=== PATIENT | male | born 1945 | race African-American/Black ===

== ENCOUNTER 2024-05-22 08:55 | Inpatient (IN) | payer MEDICARE ==
[2024-05-20 10:26] LABS: BASOPHILS % 0.3 % (0.0-1.0); EOSINOPHILS # (AUTO) 0.1 (0.0-0.4); EOSINOPHILS % 1.8 % (0.0-6.0); HEMATOCRIT 54.5 % (38.2-49.6); HEMOGLOBIN 17.3 g/dL (14.0-18.0); LYMPHOCYTES # (AUTO) 1.3 (1.0-3.2); LYMPHOCYTES % 20.5 % (18.0-39.1); MEAN CORPUSCULAR HGB CONC 31.7 g/dL (31-35); MEAN CORPUSCULAR VOLUME 100.7 fL (81-99); MONOCYTES # (AUTO) 0.6 (0.2-0.8); MONOCYTES % 9.7 % (4.4-11.3); NEUTROPHILS # (AUTO) 4.2 (2.1-6.9); NEUTROPHILS % 67.5 % (38.7-80.0); PLATELET COUNT 135 x10e3/uL (140-360); RED BLOOD COUNT 5.41 x10e6/uL (4.3-5.7); RED CELL DISTRIBUTION WIDTH 12.8 % (11.7-14.4); WHITE BLOOD COUNT 6.19 x10e3/uL (4.8-10.8)
[2024-05-20 10:50] LABS: CALCIUM 10.5 mg/dL (8.4-10.2); CREATININE, SERUM 0.77 mg/dL (0.72-1.25)
[~2024-05-22] VITALS: Ht 157.5 cm; Wt 61.9 kg
[2024-05-22] VITALS (7 sets, daily range): BP systolic 148–156; BP diastolic 81–87; PULSE 71–87; RESP 19–20; TEMP 97.6–97.7; O2SAT 94–99
[~2024-05-22 08:55] MED LIST: AMLODIPINE BESY10 MG PO; ASPIRIN81 MG PO; FINASTERIDE5 MG PO; FLOMAX0.4 MG PO; GARLIC1000 MG; METFORMIN HCL500 MG PO
[2024-05-22] MEDS: SODIUM CHLORIDE 0.9% 1000ML 1,000 ML ONE (10:25)
[2024-05-22] MEDS: CEFTRIAXONE 1 GM VIAL ONE (10:25)
[2024-05-22] MEDS: GENTAMICIN 80MG/NS 100 ML 200 ML IV ONE (10:25)
[2024-05-22] MEDS ORDERED: ACETAMINOPHEN 1000 MG/100 ML 100 ML IV ONE (11:22)
[2024-05-22] MEDS ORDERED: PROPOFOL IV EMULSION 10 MG/ML 20 ML VIAL ONE (11:22)
[2024-05-22] MEDS ORDERED: FENTANYL CITRATE/PF 100MCG/2 ML INJ ONE (11:22)
[2024-05-22] MEDS ORDERED: LIDOCAINE HCL 2% LOCAL INJ 5 ML SDV VIAL INJ ONE (11:22)
[2024-05-22] MEDS ORDERED: SEVOFLURANE INHAL SOLN 250 ML PEN BTL ONE (11:22)
[2024-05-22] MEDS ORDERED: ONDANSETRON HCL INJ 2MG/ML 2ML 2 MG/ML VIAL ONE (12:20)
[2024-05-22] MEDS ORDERED: DEXAMETHASONE SOD PHOS INJ 4 MG/ML SDV ONE (12:20)
[2024-05-22] MEDS: FENTANYL CITRATE/PF 100MCG/2 ML INJ ONE (13:44)
[2024-05-22] MEDS ORDERED: ONDANSETRON HCL INJ 2MG/ML 2ML 2 MG/ML VIAL IV PRN (13:45)
[2024-05-22 14:33] LABS: BASOPHILS % 0.1 % (0.0-1.0); EOSINOPHILS # (AUTO) 0.1 (0.0-0.4); HEMATOCRIT 49.2 % (38.2-49.6); HEMOGLOBIN 15.7 g/dL (14.0-18.0); LYMPHOCYTES % 9.5 % (18.0-39.1); MEAN CORPUSCULAR HEMOGLOBIN 32.3 pg (28-32); MEAN CORPUSCULAR HGB CONC 31.9 g/dL (31-35); MEAN CORPUSCULAR VOLUME 101.2 fL (81-99); MONOCYTES # (AUTO) 0.7 (0.2-0.8); MONOCYTES % 6.6 % (4.4-11.3); NEUTROPHILS # (AUTO) 8.2 (2.1-6.9); NEUTROPHILS % 82.6 % (38.7-80.0); RED BLOOD COUNT 4.86 x10e6/uL (4.3-5.7); RED CELL DISTRIBUTION WIDTH 12.6 % (11.7-14.4); WHITE BLOOD COUNT 9.98 x10e3/uL (4.8-10.8)
[2024-05-22 14:38] LABS: PLATELET COUNT 142 x10e3/uL (140-360)
[2024-05-22 14:52] LABS: ANION GAP 14.2 mmol/L (8-16); CALCIUM 8.7 mg/dL (8.4-10.2); CREATININE, SERUM 0.83 mg/dL (0.72-1.25); POTASSIUM 4.2 mmol/L (3.5-5.1)
[2024-05-22] MEDS: ACETAMINOPHEN 1000 MG/100 ML IV PRN (15:33)
[2024-05-22] MEDS: SENNA-S TABLET PO SCH (15:33)
[2024-05-22] MEDS: PHENAZOPYRIDINE HCL 100 MG TAB PO PRN (15:33)
[2024-05-22] MEDS: SODIUM CHLORIDE 0.9% 1000ML 1,000 ML IV SCH (15:33)
[2024-05-22] MEDS: DIPHENHYDRAMINE HCL 25 MG CAP PO PRN (19:36)
[2024-05-22] MEDS: ACETAMINOPHEN/CODEINE 300MG - 30MG TAB PO PRN (19:41)
[2024-05-23] VITALS (10 sets, daily range): BP systolic 130–143; BP diastolic 68–95; PULSE 74–93; RESP 18–20; TEMP 97.6–99; O2SAT 93–100
[2024-05-23 05:17] LABS: BASOPHILS % 0.1 % (0.0-1.0); HEMATOCRIT 44.8 % (38.2-49.6); HEMOGLOBIN 15.2 g/dL (14.0-18.0); LYMPHOCYTES # (AUTO) 0.7 (1.0-3.2); LYMPHOCYTES % 5.7 % (18.0-39.1); MEAN CORPUSCULAR HEMOGLOBIN 31.7 pg (28-32); MEAN CORPUSCULAR HGB CONC 33.9 g/dL (31-35); MEAN CORPUSCULAR VOLUME 93.5 fL (81-99); MONOCYTES # (AUTO) 1.2 (0.2-0.8); NEUTROPHILS % 84.8 % (38.7-80.0); PLATELET COUNT 146 x10e3/uL (140-360); RED BLOOD COUNT 4.79 x10e6/uL (4.3-5.7); RED CELL DISTRIBUTION WIDTH 12.6 % (11.7-14.4); WHITE BLOOD COUNT 12.92 x10e3/uL (4.8-10.8)
[2024-05-23 05:46] LABS: CALCIUM 8.6 mg/dL (8.4-10.2); CREATININE, SERUM 0.76 mg/dL (0.72-1.25)
[2024-05-23] MEDS ORDERED: HYDRALAZINE HCL 20 MG/ML VIAL IV PRN (09:00)
[2024-05-23] MEDS: CEFTRIAXONE 2 GM in SODIUM CHLORIDE 0.9% 100 ML IV SCH (09:26)
[2024-05-23] MEDS: AMLODIPINE BESYLATE 10 MG TAB PO SCH (09:29)
[2024-05-23] MEDS: FINASTERIDE 5 MG TAB PO SCH (09:29)
[2024-05-23] MEDS: TAMSULOSIN HCL 0.4 MG CAP PO SCH (17:02)
[2024-05-23] MEDS: ACETAMINOPHEN 325 MG TAB PO PRN (21:26)
[2024-05-24] VITALS (10 sets, daily range): BP systolic 125–143; BP diastolic 68–74; PULSE 71–92; RESP 16–19; TEMP 98–98.4; O2SAT 96–100
[2024-05-24 05:28] LABS: BASOPHILS % 0.3 % (0.0-1.0); EOSINOPHILS % 0.4 % (0.0-6.0); HEMATOCRIT 49.1 % (38.2-49.6); LYMPHOCYTES % 9.3 % (18.0-39.1); MEAN CORPUSCULAR HGB CONC 30.5 g/dL (31-35); MEAN CORPUSCULAR VOLUME 104.7 fL (81-99); MONOCYTES # (AUTO) 1.4 (0.2-0.8); MONOCYTES % 12.4 % (4.4-11.3); NEUTROPHILS # (AUTO) 8.7 (2.1-6.9); NEUTROPHILS % 77.3 % (38.7-80.0); PLATELET COUNT 113 x10e3/uL (140-360); RED BLOOD COUNT 4.69 x10e6/uL (4.3-5.7); RED CELL DISTRIBUTION WIDTH 13.2 % (11.7-14.4); WHITE BLOOD COUNT 11.24 x10e3/uL (4.8-10.8)
[2024-05-24 06:05] LABS: ANION GAP 14.8 mmol/L (8-16); CALCIUM 8.7 mg/dL (8.4-10.2); CREATININE, SERUM 0.7 mg/dL (0.72-1.25); POTASSIUM 3.8 mmol/L (3.5-5.1)
[2024-05-24 09:59] LABS: LYMPHOCYTES % (MANUAL) 10 % (19-48); MONOCYTES % (MANUAL) 4 % (3.4-9.0); NEUTROPHILS % (MANUAL) 83 % (40-74); REACTIVE LYMPHOCYTES 3
[2024-05-24 10:00] LABS: HYPOCHROMASIA SLIGHT; PLATELET ESTIMATE SLIGHTLY DECREASED; PLATELET MORPHOLOGY COMMENT NORMAL
[2024-05-25] VITALS (8 sets, daily range): BP systolic 127–145; BP diastolic 68–99; PULSE 73–85; RESP 18–22; TEMP 97.7–99.6; O2SAT 98–100
[2024-05-25 06:06] LABS: BASOPHILS % 0.2 % (0.0-1.0); EOSINOPHILS # (AUTO) 0.1 (0.0-0.4); EOSINOPHILS % 0.6 % (0.0-6.0); HEMATOCRIT 48.1 % (38.2-49.6); HEMOGLOBIN 14.9 g/dL (14.0-18.0); LYMPHOCYTES # (AUTO) 0.9 (1.0-3.2); LYMPHOCYTES % 10.5 % (18.0-39.1); MEAN CORPUSCULAR HEMOGLOBIN 31.8 pg (28-32); MEAN CORPUSCULAR VOLUME 102.8 fL (81-99); MONOCYTES # (AUTO) 0.9 (0.2-0.8); MONOCYTES % 11.3 % (4.4-11.3); NEUTROPHILS # (AUTO) 6.4 (2.1-6.9); NEUTROPHILS % 77.2 % (38.7-80.0); PLATELET COUNT 68 x10e3/uL (140-360); RED BLOOD COUNT 4.68 x10e6/uL (4.3-5.7)
[2024-05-25 06:28] LABS: ANION GAP 14.7 mmol/L (8-16); CREATININE, SERUM 0.67 mg/dL (0.72-1.25); POTASSIUM 3.7 mmol/L (3.5-5.1)
[2024-05-26] VITALS: BP 132/69; PULSE 73; RESP 18; TEMP 97.8; O2SAT 99
[2024-05-26 04:00] VITALS: BP 131/73; PULSE 73; RESP 18; TEMP 97.6; O2SAT 95
[2024-05-26 04:44] LABS: BASOPHILS % 0.2 % (0.0-1.0); EOSINOPHILS # (AUTO) 0.1 (0.0-0.4); EOSINOPHILS % 2.2 % (0.0-6.0); HEMOGLOBIN 14.7 g/dL (14.0-18.0); LYMPHOCYTES % 17.1 % (18.0-39.1); MEAN CORPUSCULAR HEMOGLOBIN 31.8 pg (28-32); MEAN CORPUSCULAR HGB CONC 34.2 g/dL (31-35); MONOCYTES # (AUTO) 0.8 (0.2-0.8); MONOCYTES % 13.6 % (4.4-11.3); NEUTROPHILS % 66.7 % (38.7-80.0); PLATELET COUNT 135 x10e3/uL (140-360); RED BLOOD COUNT 4.62 x10e6/uL (4.3-5.7); RED CELL DISTRIBUTION WIDTH 12.8 % (11.7-14.4); WHITE BLOOD COUNT 6.02 x10e3/uL (4.8-10.8)
[2024-05-26 04:55] LABS: ANION GAP 13.3 mmol/L (8-16); CALCIUM 8.9 mg/dL (8.4-10.2); CREATININE, SERUM 0.69 mg/dL (0.72-1.25)
[2024-05-26 05:03] LABS: MEAN CORPUSCULAR VOLUME 93.1 fL (81-99)
[2024-05-26 05:05] LABS: POTASSIUM 3.3 mmol/L (3.5-5.1)
[2024-05-26 06:31] VITALS: PULSE 74; RESP 22; O2SAT 97
[2024-05-26 08:00] VITALS: BP 152/75; PULSE 86; RESP 18; TEMP 98.2; O2SAT 100
[2024-05-26 12:00] VITALS: BP 133/68; PULSE 83; RESP 18; TEMP 98.2; O2SAT 100
[2024-05-26 16:00] VITALS: BP 149/76; PULSE 87; RESP 18; TEMP 98.2; O2SAT 100
[2024-05-26] MEDS ORDERED: PYRIDIUM100 MG PO (16:21)
[2024-05-26] MEDS ORDERED: CEPHALEXIN500 MG PO (16:21)
[2024-05-26] MEDS ORDERED: SENNA S TABLET1 EACH PO (16:21)
== END 2024-05-26 18:00 | disposition home or self-care (01) | DRG 713 ==
LOC: OR 08:55 → PACU V 13:33 → MED/SURG2 14:12
PROVIDERS: ADMIT Urology; ATTEND Urology
PROC: 0T7D8ZZ Dilation of Urethra, Via Natural or Artificial Opening Endoscopic (ICD-10-PCS; 2024-05-22)
PROC: BT141ZZ Fluoroscopy of Kidneys, Ureters and Bladder using Low Osmolar Contrast (ICD-10-PCS; 2024-05-22)
PROC: 0V508ZZ Destruction of Prostate, Via Natural or Artificial Opening Endoscopic (ICD-10-PCS; principal; 2024-05-22 12:09)
DX: N40.1 Benign prostatic hyperplasia with lower urinary tract symptoms (principal); E87.20 Acidosis, unspecified; N13.8 Other obstructive and reflux uropathy; R31.0 Gross hematuria; I10 Essential (primary) hypertension; N32.81 Overactive bladder; N39.41 Urge incontinence; I25.10 Atherosclerotic heart disease of native coronary artery without angina pectoris; E78.5 Hyperlipidemia, unspecified; N35.919 Unspecified urethral stricture, male, unspecified site; R73.03 Prediabetes; K21.9 Gastro-esophageal reflux disease without esophagitis; Z79.84 Long term (current) use of oral hypoglycemic drugs; Z79.82 Long term (current) use of aspirin; Z95.5 Presence of coronary angioplasty implant and graft
CPT/HCPCS: 36415; 71046; 74420; 80048; 82310; 82948; 83735; 83970; 85025; 87086; 88305; 94799; C1758; J0696; J1100; J1580; J2003; J2405; J7030; J7050